=== PATIENT | female | born 1950 | race Caucasian/White ===

== ENCOUNTER 2019-10-21 05:02 | Inpatient (IN) | payer MEDICARE, MEDICAID ==
[~2019-10-21] VITALS: Ht 154.9 cm; Wt 58.7 kg
[2019-10-21 05:46] LABS: CHLORIDE 102 mEq/L (98-107)
[2019-10-21 05:49] LABS: PROTHROMBIN TIME 10.7 sec (9.6-11.0)
[2019-10-21 05:50] LABS: BASOPHILS % 0.5 % (0.0-2.0); EOSINOPHILS % 0.2 % (0.0-5.0); HEMOGLOBIN. 12.8 g/dL (12.0-16.0); LYMPHOCYTES % 8.5 % (20.0-50.0); MEAN CORPUSCULAR HEMOGLOBIN 34.7 pg (28.0-32.0); MEAN CORPUSCULAR VOLUME 102.6 fL (81.0-99.0); MEAN PLATELET VOLUME 7.7 fl (7.4-10.4); MONOCYTES % 4.5 % (2.0-8.0); NEUTROPHILS % 86.3 % (40.0-76.0); PLATELET 399 x1000/uL (130-400); RED CELL DISTRIBUTION WIDTH 13.1 % (11.6-14.6)
[2019-10-21] MEDS ORDERED: SODIUM CHLORIDE 0.9% 1,000 ML IV ONE (06:39)
[2019-10-21] MEDS ORDERED: MORPHINE SULFATE 4 MG/ML CPJ (NOT FOR IM USE) IV STA (06:39)
[2019-10-21] MEDS ORDERED: ONDANSETRON HCL 4MG/2ML INJ IV STA (06:39)
[2019-10-21] MEDS ORDERED: METRONIDAZOLE 500 MG PREMIX 100 ML IV ONE (06:45)
[2019-10-21] MEDS ORDERED: LEVOFLOXACIN 750MG PREMIX 150 ML IV ONE (06:45)
[2019-10-21 08:31] LABS: CLARITY URINE CLEAR (CLEAR); COLOR URINE DARK YELLOW (YELLOW); KETONES URINE 1+ (NEGATIVE); LEUKOCYTE ESTERASE URINE 1+ (NEGATIVE); NITRITE URINE POSITIVE (NEGATIVE); OCCULT BLOOD URINE NEGATIVE (NEGATIVE); PROTEIN URINE TRACE (NEGATIVE); SPECIFIC GRAVITY URINE 1.017 (1.005-1.030)
[2019-10-21 12:09] VITALS: BP 129/86
[2019-10-21] MEDS ORDERED: MORPHINE SULFATE 4 MG/ML CPJ (NOT FOR IM USE) IV PRN (13:15)
[2019-10-21] MEDS ORDERED: ONDANSETRON HCL 4MG/2ML INJ IV PRN (13:15)
[2019-10-21] MEDS ORDERED: LEVOFLOXACIN 500MG PREMIX 100 ML IV SCH (13:15)
[2019-10-21] MEDS: METRONIDAZOLE 500 MG PREMIX 100 ML IV SCH ×2 (14:41→21:40)
[2019-10-21] MEDS: ENOXAPARIN 40MG/0.4ML SYR SUBCUT SCH (14:42)
[2019-10-21] MEDS: DEXT 5% WATER + KCL 20MEQ/L 1,000 ML IV SCH ×2 (14:42→21:41)
[2019-10-21] MEDS ORDERED: SODIUM CHLORIDE 0.9% 250 ML IV ONE (14:45)
[2019-10-21] MEDS ORDERED: HYDRALAZINE 20MG/ML VIAL IV PRN (15:15)
[2019-10-21] MEDS ORDERED: HYDRALAZINE 10 MG in SODIUM CHLORIDE 0.9% 49.5 ML IV PRN (15:30)
[2019-10-21] MEDS: FAMOTIDINE 20MG/2ML VIAL IV SCH (16:04)
[2019-10-22] VITALS: BP 114/67
[2019-10-22 04:00] VITALS: BP 99/55
[2019-10-22 05:39] LABS: HEMATOCRIT. 30.8 % (36.0-48.0); HEMOGLOBIN. 10.2 g/dL (12.0-16.0); MEAN CORPUSCULAR HEMOGLOBIN 34.3 pg (28.0-32.0); MEAN CORPUSCULAR VOLUME 103.2 fL (81.0-99.0); MEAN PLATELET VOLUME 7.6 fl (7.4-10.4); PLATELET 317 x1000/uL (130-400); RED BLOOD CELL COUNT 2.99 mill/uL (4.2-5.4); RED CELL DISTRIBUTION WIDTH 13.4 % (11.6-14.6)
[2019-10-22] MEDS: METRONIDAZOLE 500 MG PREMIX 100 ML IV SCH ×2 (05:41→14:17)
[2019-10-22] MEDS: DEXT 5% WATER + KCL 20MEQ/L 1,000 ML IV SCH ×2 (05:42→14:00)
[2019-10-22 05:57] LABS: T4 FREE 1.38 ng/dL (0.76-1.46)
[2019-10-22 08:00] VITALS: BP 107/56
[2019-10-22] MEDS: FAMOTIDINE 20MG/2ML VIAL IV SCH (09:38)
[2019-10-22] MEDS: ENOXAPARIN 40MG/0.4ML SYR SUBCUT SCH (09:39)
[2019-10-22 12:00] VITALS: BP 106/56
[2019-10-22 14:57] LABS: CHLORIDE 105 mEq/L (98-107)
[2019-10-22 16:00] VITALS: BP 109/45
[2019-10-22 16:43] LABS: PLATELET ESTIMATE NORMAL
[2019-10-22 16:49] VITALS: BP 109/45
[2019-10-23] MEDS ORDERED: LEVOFLOXACIN 750MG PREMIX 150 ML IV SCH (07:00)
== END 2019-10-22 17:30 | disposition short-term general hospital (02) | DRG 872 ==
LOC: ER 05:02 → 6EST 08:02 → EDBEDREQTM 08:12 → EDBEDREQ 08:12 → ENRESERV 09:48
PROVIDERS: ADMIT Ophthalmology; ATTEND Ophthalmology
DX: A41.9 Sepsis, unspecified organism (principal); E87.1 Hypo-osmolality and hyponatremia; K57.32 Diverticulitis of large intestine without perforation or abscess without bleeding; N39.0 Urinary tract infection, site not specified; E78.5 Hyperlipidemia, unspecified; K21.9 Gastro-esophageal reflux disease without esophagitis; R73.9 Hyperglycemia, unspecified; K56.41 Fecal impaction; N20.0 Calculus of kidney; Z88.0 Allergy status to penicillin
CPT/HCPCS: 36415; 71045; 74176; 80053; 80061; 81003; 83036; 83880; 84439; 84443; 84484; 85025; 86850; 86900; 93005; 93306; 99285; J1650; J1956; J2270; J2405; J3490; J7030; J7060